=== PATIENT | male | born 1985 | race Caucasian/White ===

== ENCOUNTER 2024-08-18 15:48 | Emergency (ER) | payer OTHER, SELFPAY ==
[2024-08-18 15:57] VITALS: BP 138/93; PULSE 77; RESP 16; TEMP 36.6; O2SAT 100
--- NOTE | 2024-08-18 16:15 | ED_ITS ---
HPI - URI/Sore Throat General Chief Complaint: Upper Respiratory Infection Stated Complaint: Sinus Congestion/Left Ear Problem Time Seen by Provider: 08/18/24 16:02 Source: patient, RN notes reviewed and old records reviewed Mode of arrival: ambulatory Limitations: no limitations History of Present Illness HPI Narrative: 39 year old male presents to [facility] care with complaints of 1.5 weeks duration of sinus congestion and drainage with left ear pain for the past 3 days with it feeling plugged. Patient reports that he has been taking Ibuprofen and Sudafed for his symptoms. Patient has some mild cough noted. MD elicited complaint: cough and sore throat Pertinent past history: sinusitis Onset (ago): week(s) (1.5) Severity: moderate Description of mucous: yellow Able to tolerate fluids by mouth: Yes Treatments prior to arrival: ibuprofen and other (sudafed) Related Data Allergies Allergy/AdvReac Type Severity Reaction Status Date / Time No Known Allergies Allergy Verified 10/31/19 16:35 Review of Systems Review of Systems: CONSTITUTIONAL: Reports malaise, no chills, sweats, or fever. EYES: Denies visual changes, redness, or discharge. ENT: Reports rhinorrhea, congestion, sinus pain,left otalgia and no sore throat. CARDIOVASCULAR: Denies chest pain, palpitations, or edema. RESPIRATORY: Reports cough.? Denies dyspnea. GASTROINTESTINAL: Denies abdominal pain, nausea, vomiting, diarrhea SKIN: Denies rash or itching. MUSCULOSKELETAL: Denies myalgia. NEUROLOGIC: Denies headache. All systems reviewed & are unremarkable except as noted in HPI and below PMFSH Past Medical History Medical History Sinusitis Ear infection Social History Social History (Updated 08/18/24 @ 16:43 by Kitty Ferraro NP) Smoking status: Never smoker Alcohol intake: current Substance use type: does not use Living arrangements: with family Gender identity (if verbalized by the patient): Male Comments At time of signature, agree with nursing past medical, surgical, social and family history. There is no relevant family history pertinent to the presenting complaint Exam Narrative: GENERAL: Well-appearing, well-nourished, and in no acute distress. HEAD: Normocephalic EYES: PERRLA, conjunctivae clear ENT: Nares clear, turbinates edematous and erythematous, clear discharge. Mucous membranes moist.Left TM red and bulging, Right TM pearly garvey with dull light reflex bilaterally; no tragal tenderness. Oropharynx erythematous without lesions. Tonsils red not enlarged and without exudate, no drooling, no hoarseness, no trismus, uvula midline.POST NASAL DRAINAGE NECK: Supple. No lymphadenopathy CHEST: Clear to auscultation, breath sounds equal. No wheezing, rhonchi, rales, or stridor. No respiratory distress, speaks in full sentences.cough [id number]% on room air HEART: Regular rate and rhythm. No murmur heard. SKIN: Warm, dry, no rash. NEURO: Alert and oriented x3. PSYCH: Normal mood and affect Course Course Emergency Course: Patient is aware of diagnosis, understands and agrees to treatment plan.? Anticipatory guidance given.? Patient agrees to follow-up as directed and is aware of reasons to seek care at the emergency department. Portions of this record may have been created with voice recognition software Level of Care: Express Care Visit Vital Signs Vital signs: Vital Signs Temperature 36.6 C 08/18/24 15:57 Pulse Rate 77 08/18/24 15:57 Respiratory Rate 16 08/18/24 15:57 Blood Pressure 138/93 H 08/18/24 15:57 Pulse Oximetry 100 08/18/24 15:57 Oxygen Delivery Room Air 08/18/24 15:57 Temperature 36.6 C 08/18/24 15:57 Pulse Rate 77 08/18/24 15:57 Respiratory Rate 16 08/18/24 15:57 Blood Pressure 138/93 H 08/18/24 15:57 Pulse Oximetry 100 08/18/24 15:57 Oxygen Delivery Room Air 08/18/24 15:57 Reviewed MDM - URI/Sore Throat MDM Narrative Medical decision making narrative: Differential diagnosis considered: Pretty virus, strep pharyngitis, allergic rhinitis, upper respiratory tract infection, sinusitis, rhinosinusitis, nasopharyngitis. viral pharyngitis, otitis media, otitis externa, pneumonia, bronchitis, viral cough syndrome, viral syndrome, and influenza.? Exam findings show no acute concerns or changes; patient is non-toxic appearing and is in no distress.? Patient is appropriate for outpatient treatment and follow-up. Differential Diagnosis Differential diagnosis: Likely upper respiratory infection, otitis media, sinusitis and other (cough) Medical Records Attestation: I reviewed the patient's medical records. Lab Data Attestation: I reviewed the patient's lab results. Critical Care Time Critical Care Time Critical Care Time: No Discharge Plan Discharge Clinical Impression: Acute left otitis media Sinusitis Qualifiers: Sinusitis location: pansinusitis Chronicity: acute Recurrence: non-recurrent Qualified Code(s): J01.40 - Acute pansinusitis, unspecified Patient Disposition: Home, Self-Care Condition: Stable Instructions: Antibiotic Form, Sinusitis (ED), Ear Infection (GEN) Additional Instructions: Increase fluids especially juices and water Wjbo-qyr-xzzhjbk cough and cold medicine of your choice for your symptoms Zyrtec, Claritin, or Dilcia daily may include plain Sudafed 1 tab daily Nasal Flonase spray daily heat to the face 20-30 minutes 4-6 times a day for pain Salt water gargles, throat lozenges or throat sprays as desired Antibiotic as directed--finished the medication If your symptoms persist, change or worsen significantly before you can contact your personal physician then please, without delay, go to the emergency department for further evaluation. Follow-up with PCP in 7-10 days or sooner if needed Follow up with PCP soon in regards to your blood pressure which is elevated above threshold for referral. Blood pressure above 120/80 may indicate pre- hypertension. 138/93 Patient Language: Bengali Prescriptions: New amoxicillin-pot clavulanate 875-125 mg tablet 1 tablet PO Q12H Qty: 20 0RF fluticasone propionate [Flonase Allergy Relief] 50 mcg/actuation spray,suspension 1 spray intranasal DAILY Qty: 16 0RF Rx Instructions: administer into each nostril No Action fluticasone propionate 50 mcg/actuation spray,suspension 2 spray NASAL DAILY Qty: 15.8 0RF Rx Instructions: administer into each nostril Follow-up/Referrals: PHYSICIAN,QUALITATIVE EXECUTIVE RESEARCHER [Primary Care Provider] - Time of Disposition: 16:19 Quality Cornish Coma Scale Eyes: Open Verbal: Oriented and Alert Motor: Follows Commands Cornish Coma Total Score: 15
--- OUTSIDE RECORDS SUMMARY | 2024-08-22 02:32 | XMS_ITS | Continuity of Care Document ---
Author Organization [facility] Address [address] [place] [address] Phone Care Team Providers Care Bilingual Administrative Assistant Name Role Phone Veronica Cheng DO Unavailable Unavailable Procedures Procedure Date Rating Letter Office/outpatient visit,est, mod 2008 Supplemental Report Office/outpatient visit,est, mod 2008 X-ray exam of wrist, complete 9 Supplemental Report Office/outpatient visit,est, mod 2008 X-ray exam of wrist, complete 9 Supplemental Report Office/outpatient visit,est, mod 2008 Supplemental Report Office/outpatient visit,est, mod 2008 Rafita Wrap 4 Supplemental Report Office/outpatient visit,new, mod 2008 Advance Directives Directive Yes / No Effective Date File Name No Information Encounters Encounter Description Practice Location Reason(s) For Visit Diagnoses Date Provider Providers Copied on Encounter Rating Letter [facility], [address] [place] [address], [id number], [phone] [facility] No Information 9 Skylar Martin. [address] [facility], [address], [place], [place], [id number] , [place]. tel: [phone] Office/outpat ient visit,est, mod [facility], [address] [place] [address], [id number], [phone] [facility] No Information 9 Skylar Martin. [address] [facility] [facility], [address], [place], [place], [id number] , [place]. tel:[phone] Office/outpat ient visit,est, [facility], [address] [facility] [address], [place], [place], [id number], [place] tel:[phone] [facility] No Information Teddy-2 3-200 9 Skylar Martin. [address] [facility] [facility], [facility] [address], [place], [place], [id number] , [place]. tel:[phone] Office/outpat ient visit,est, [facility], [address] [address], [place], [place], [id number], [place] tel:[phone] [facility] No Information Teddy-0 9-200 9 Skylar Martin. [address] [facility] [facility], [address] [address], [place], [place], [id number] , [place]. tel:[phone] Office/outpat ient visit,est, [facility], [address] [facility] [address], [place], [place], [id number], [place] tel:[phone] [facility] No Information Teddy-0 4-200 9 Skylar Martin. [address] [facility] [facility], [facility] [address], [place], [place], [id number] , [place]. tel: [phone] Office/outpat ient visit,est, [facility], [address] [address], [place], [place], [id number], [place] tel:[phone] [facility] No Information Teddy-0 1-200 9 Skylar Martin. [address] [facility] [facility], [address] [address], [place], [place], [id number] , [place]. tel:[phone] Office/outpat ient visit,new, [facility], [address] [facility] [address], [place], [place], [id number], [place] tel:[phone] [facility] No Information May-2 8-200 9 Skylar Martin. [address] [facility], [address], [place], [place], [id number] , [place]. tel: [phone] Family History Family Member Type Diagnosis Age At Onset No Information Payers Payer name Insurance type Covered republican ID Lamberto oakes(deborah Alvarez [id number] Social History Type Description Quantity Date Captured Comments Sex Male Smoking Status No Information Chief Complaint And Reason For Visit No Information Reason For Referral Reason For Referral No Information History Of Present Illness Encounter Date Complaint History Of Prese nt Illness No Information Functional Status Date Functional Assessmen t No Information Instructions Date Instruction Additional Infor mation No Information Assessments Type Assessment Date No Information Patient Care Teams Name Effective Dates (start - stop) Status Members No Information
--- OUTSIDE RECORDS SUMMARY | 2024-08-22 02:42 | XMS_ITS | Continuity of Care Document ---
Author Organization [facility] Address [address] [place] [address] Phone Care Team Providers Care Radio Adjuster Name Role Phone Veronica Cheng DO Unavailable [...] Providers Copied on Encounter Rating Letter [facility], [address] [place] [address], [id number], [phone] [facility] No Information 9 Skylar Martin. [address] [facility], [address], [place], [place], [id number] , [place]. tel: [phone] Office/outpat ient visit,est, mod [facility], [address] [place] [address], [id number], [phone] [facility] No Information 9 Skylar Martin. [address] [facility], [place], [place], [id number] , [place]. tel:[phone] Office/outpat ient visit,est, [facility], [address] [facility] [address], [place], [place], [id number], [place] tel:[phone] [facility] No Information Teddy-2 3-200 9 Skylar Martin. [address] [facility], [facility] [address], [place], [place], [id number] , [place]. tel:[phone] Office/outpat ient visit,est, [facility], [address] [address], [place], [place], [id number], [place] tel:[phone] [facility] No Information Teddy-0 9-200 9 Skylar Martin. [address] [facility], [address] [address], [place], [place], [id number] , [place]. tel:[phone] Office/outpat ient visit,est, [facility], [address] [facility] [address], [place], [place], [id number], [place] tel:[phone] [facility] No Information Teddy-0 4-200 9 Skylar Martin. [address] [facility], [facility] [address], [place], [place], [id number] , [place]. tel: [phone] Office/outpat ient visit,est, [facility], [address] [address], [place], [place], [id number], [place] tel:[phone] [facility] No Information Teddy-0 1-200 9 Skylar Martin. [address] [facility], [address] [address], [place], [place], [id number] , [place]. tel:[phone] Office/outpat ient visit,new, [facility], [address] [facility] [address], [place], [place], [id number], [place] tel:[phone] [facility] No Information May-2 8-200 9 Skylar Martin. [address] [facility], [address], [place], [place], [id number] , [place]. tel: [phone] Family History Family Member Type Diagnosis Age At Onset No Information Payers Payer name Insurance type Covered alliance party ID Lamberto oakes(deborah Alvarez [id number] Social History Type Description Quantity Date Captured [...]
== END 2024-08-18 16:26 | disposition home or self-care (01) ==
PROVIDERS: Emergency Provider Registered Nurse
DX: H66.92 Otitis media, unspecified, left ear (principal); J01.40 Acute pansinusitis, unspecified
CPT/HCPCS: 99213; G0463